=== PATIENT | male | born 1960 | race Two or more races ===

== ENCOUNTER → 2022-10-03 | Outpatient (CLI) | payer OTHER | END | disposition home or self-care (01) | LOC: LABWHC1 07:36 | PROVIDERS: ATTEND Urology | DX: N52.9 Male erectile dysfunction, unspecified (principal) | CPT/HCPCS: 36415; 84402; 84403 ==

== ENCOUNTER → 2023-08-08 | Outpatient (CLI) | payer OTHER ==
--- NOTE | 2023-08-09 06:26 | MR ---
EXAMINATION TYPE: MR shoulder LT wo con DATE OF EXAM: 08/08/2023 COMPARISON: Outside bilateral shoulder x-ray July 31, 2023 HISTORY: Left shoulder pain and limited range of motion TECHNIQUE: Multiplanar, multisequence imaging of the left shoulder is performed without contrast. FINDINGS: Rotator Cuff: Full-thickness retracted tears of the supraspinatus and infraspinatus tendons with tend on retraction to level of the acromioclavicular joint. Intact supraspinatus tendon. Mild fat replaced atrophy of the supraspinatus and infraspinatus muscle bulk. Acromioclavicular Joint: Severe spurring and narrowing. Glenohumeral Joint: Small to moderate-sized joint effusion. High positioned humeral head is noted. Labrum: Increased signal superior labrum consistent with tearing. Biceps Tendon: The long head of biceps is in normal location within bicipital groove. Bone marrow signal: Heterogeneous increased T2 signal at the acromioclavicular joint. Other: No additional significant abnormality is appreciated. IMPRESSION: 1. Retracted full thickness tears of the supraspinatus and infraspinatus tendons with high riding hum eral head suggesting underlying instability. Severe AC joint arthropathy and possible inflammatory ch anges are noted.
== END | disposition home or self-care (01) ==
LOC: RADMRIMAIN 15:25
PROVIDERS: ATTEND Orthopaedic Surgery
DX: M19.012 Primary osteoarthritis, left shoulder (principal); M75.122 Complete rotator cuff tear or rupture of left shoulder, not specified as traumatic